=== PATIENT | male | born 1955 | race Hispanic/Latino ===

== ENCOUNTER 2021-07-15 14:49 | Inpatient (IN) | payer MEDICARE ==
[~2021-07-15] VITALS: Ht 188 cm; Wt 114.4 kg
[2021-07-15 15:10] LABS: BASOPHILS % (AUTO) 0.7 % (0.0-5.0); EOSINOPHILS % (AUTO) 1.6 % (0.0-8.0); HEMATOCRIT 48.6 % (42-54); LYMPHOCYTES % (AUTO) 22.3 % (21.0-51.0); MEAN CORPUSCULAR HEMOGLOBIN 30.1 pg (27.0-33.0); MEAN CORPUSCULAR VOLUME 88.7 fL (79-99); MONOCYTES % (AUTO) 8.5 % (3.0-13.0); NEUTROPHILS % (AUTO) 66.3 % (40.0-77.0); PLATELET COUNT (AUTO) 262 K/uL (130-400); RED BLOOD CELL COUNT(AUTO) 5.48 MIL/uL (4.50-6.20); RED CELL DISTRIBUTION WIDTH 13.2 % (11.0-15.5); WHITE BLOOD COUNT (AUTO) 14.9 K/uL (4.8-10.8)
[2021-07-15 15:28] LABS: CREATININE 1.2 mg/dL (0.5-1.5)
[2021-07-15 15:34] LABS: ALBUMIN 4.2 g/dL (3.5-5.0); BILIRUBIN,TOTAL 0.5 mg/dL (0.2-1.0); TOTAL PROTEIN, SERUM 7.9 g/dL (6.0-8.3)
[2021-07-15 15:54] LABS: BILIRUBIN,URINE Negative (NEGATIVE); COLOR,URINE Yellow (YELLOW); GLUCOSE, URINE (UA) Negative (NEGATIVE); KETONES,URINE Negative (NEGATIVE); LEUKOCYTE ESTERASE ,URINE Large (NEGATIVE); NITRATE,URINE Positive (NEGATIVE); OCCULT BLOOD,URINE Large (NEGATIVE); PH,URINE 5.5 (5.0-8.0); PROTEIN,URINE POS 1+ mg/dL (NEGATIVE)
[2021-07-15 15:55] LABS: APPEARANCE,URINE CLOUDY (CLEAR)
[2021-07-15 16:01] LABS: BACTERIA,URINE Few /HPF (None Seen); WBC,URINE 51-100 /HPF (0-1)
[2021-07-15 16:02] LABS: SQUAMOUS EPITHELIAL CELL,UR Rare /HPF (0-2)
[2021-07-15] MEDS ORDERED: ONDANSETRON 4MG INJ IVP ONE (16:30)
[2021-07-15] MEDS ORDERED: KETOROLAC 15MG/ML VIAL (15MG/ML) IV ONE (16:30)
[2021-07-15] MEDS ORDERED: 0.9%NACL 1000ML 1,000 ML IV ONE (16:30)
[2021-07-15] MEDS ORDERED: CEFTRIAXONE 2GM VIAL IVP ONE (17:30)
[2021-07-15] MEDS ORDERED: LACTULOSE 20 GM/30 ML UDCUP PO PRN (19:30)
[2021-07-15] MEDS ORDERED: ONDANSETRON 4MG INJ IV PRN (19:30)
[2021-07-15] MEDS ORDERED: MAG/ALUM/SIMETH 30 ML UDCUP PO PRN (19:30)
[2021-07-15] MEDS ORDERED: ACETAMINOPHEN 325 MG TAB PO PRN ×2 (19:30)
[2021-07-15 19:47] LABS: PROTEIN,URINE RANDOM 53.1 mg/dL (0-11.9)
[2021-07-15] MEDS: 0.9%NACL 1000ML 1,000 ML IV SCH (20:56)
[2021-07-15] MEDS: FAMOTIDINE 20MG VIAL IV SCH (20:56)
[2021-07-15] MEDS: ZOSYN 3.375GM+NS 50ML 50 ML IV SCH (20:56)
[2021-07-15] MEDS ORDERED: FAMOTIDINE 20MG VIAL IV SCH (21:00)
[2021-07-15 23:35] VITALS: BP 135/74
[2021-07-15] MEDS ORDERED: LEVO100 PO (23:55)
[2021-07-15] MEDS ORDERED: METF-446 PO (23:55)
[2021-07-15] MEDS ORDERED: LORA10TA7 PO (23:55)
[2021-07-15] MEDS ORDERED: LISI5TAB21 PO (23:55)
[2021-07-15] MEDS ORDERED: MONT-39 PO (23:55)
[2021-07-16 04:00] VITALS: BP 129/71
[2021-07-16 04:59] LABS: BASOPHILS % (AUTO) 0.6 % (0.0-5.0); EOSINOPHILS % (AUTO) 1.7 % (0.0-8.0); HEMATOCRIT 43.8 % (42-54); LYMPHOCYTES % (AUTO) 17.2 % (21.0-51.0); MEAN CORPUSCULAR HEMOGLOBIN 29.1 pg (27.0-33.0); MEAN CORPUSCULAR HGB CONC 32.2 g/dL (32.0-36.0); MEAN CORPUSCULAR VOLUME 90.5 fL (79-99); MONOCYTES % (AUTO) 10.2 % (3.0-13.0); NEUTROPHILS % (AUTO) 69.9 % (40.0-77.0); PLATELET COUNT (AUTO) 201 K/uL (130-400); RED BLOOD CELL COUNT(AUTO) 4.84 MIL/uL (4.50-6.20); RED CELL DISTRIBUTION WIDTH 13.2 % (11.0-15.5); WHITE BLOOD COUNT (AUTO) 14.4 K/uL (4.8-10.8)
[2021-07-16 05:15] LABS: CREATININE 1.3 mg/dL (0.5-1.5); MAGNESIUM 1.9 mg/dL (1.80-2.40); PHOSPHORUS 4.4 mg/dL (2.5-4.9); POTASSIUM 4.1 mmol/L (3.5-5.1)
[2021-07-16] MEDS: ZOSYN 3.375GM+NS 50ML 50 ML IV SCH ×3 (05:51→22:25)
[2021-07-16] MEDS: 0.9%NACL 1000ML 1,000 ML IV SCH ×2 (05:52→22:26)
[2021-07-16 08:39] VITALS: BP 123/72
[2021-07-16] MEDS: FAMOTIDINE 20MG VIAL IV SCH ×2 (08:43→22:25)
[2021-07-16 12:05] VITALS: BP 130/77
[2021-07-16 18:15] VITALS: BP 117/81
[2021-07-16 20:00] VITALS: BP 135/76
[2021-07-16] MEDS: INSULIN HUMULIN R 100 UNIT/ML 3ML SQ SCH (21:00)
[2021-07-17 00:26] VITALS: BP 133/59
[2021-07-17] MEDS: 0.9%NACL 1000ML 1,000 ML IV SCH (01:30)
[2021-07-17 04:00] VITALS: BP 115/65
[2021-07-17 04:44] LABS: HEMATOCRIT 43.3 % (42-54); MEAN CORPUSCULAR HEMOGLOBIN 30.5 pg (27.0-33.0); MEAN CORPUSCULAR HGB CONC 34.2 g/dL (32.0-36.0); MEAN CORPUSCULAR VOLUME 89.1 fL (79-99); RED BLOOD CELL COUNT(AUTO) 4.86 MIL/uL (4.50-6.20); RED CELL DISTRIBUTION WIDTH 13.2 % (11.0-15.5); WHITE BLOOD COUNT (AUTO) 10.7 K/uL (4.8-10.8)
[2021-07-17 04:53] LABS: CREATININE 1.1 mg/dL (0.5-1.5)
[2021-07-17] MEDS: ZOSYN 3.375GM+NS 50ML 50 ML IV SCH (05:25)
[2021-07-17] MEDS: INSULIN HUMULIN R 100 UNIT/ML 3ML SQ SCH (06:50)
[2021-07-17] MEDS ORDERED: LEVOTHYROXINE 100 MCG TABLET PO SCH (07:30)
[2021-07-17 07:34] VITALS: BP 127/64
[2021-07-17] MEDS: FAMOTIDINE 20MG VIAL IV SCH (08:29)
[2021-07-17] MEDS ORDERED: LEVO750T46 PO (08:40)
[2021-07-17] MEDS ORDERED: LISINOPRIL 5 MG TABLET PO SCH (09:00)
== END 2021-07-17 11:15 | disposition home or self-care (01) | DRG 690 ==
LOC: EDH 14:49 → EDHIP 19:24 → 3DH 23:31
PROVIDERS: ADMIT Hospitalist; ATTEND Hospitalist
DX: N13.6 Pyonephrosis (principal); E11.9 Type 2 diabetes mellitus without complications; I10 Essential (primary) hypertension; E03.9 Hypothyroidism, unspecified; D72.829 Elevated white blood cell count, unspecified; R31.0 Gross hematuria; Z87.442 Personal history of urinary calculi
CPT/HCPCS: 36415; 74018; 74176; 80048; 80053; 81001; 82570; 82948; 83690; 83735; 84100; 84156; 84300; 85025; 85027; 87077; 87088; 87186; G0378; J0696; J1885; J2405; J2543; J3490; J7030

== ENCOUNTER → 2021-08-14 | Outpatient (CLI) | payer MEDICARE ==
[~2021-08-14] MED LIST: LEVO100 PO; LEVO750T46 PO; LISI5TAB21 PO; LORA10TA7 PO; METF-446 PO; MONT-39 PO
== END | disposition home or self-care (01) ==
LOC: RAH 15:07
PROVIDERS: ATTEND Urology
DX: N13.2 Hydronephrosis with renal and ureteral calculous obstruction (principal); N28.1 Cyst of kidney, acquired
CPT/HCPCS: 74176